=== PATIENT | male | born 1980 | race Caucasian/White ===

== ENCOUNTER 2018-08-31 13:23 | Day surgery (SDC) | payer OTHER, MEDICAID, SELFPAY ==
[2018-08-25 16:46] VITALS: BMI 34.1
[2018-08-31] VITALS (7 sets, daily range): BP systolic 117–140; BP diastolic 79–94; PULSE 79–113; RESP 11–18; TEMP 36.3–37.1; O2SAT 93–98; BMI 34.1
[2018-08-31] MEDS: LACTATED RINGERS 1,000 ML 42 ML IV (14:12)
--- NOTE | 2018-08-31 14:26 | PM.PREOP ---
Pre-operative Note Interval Note Pre-op Check: Yes History & Physical Reviewed by Physician Changes: No
[2018-08-31] MEDS: CEFAZOLIN 2 GM/100 ML FROZ.PIGGY IV (14:40)
--- NOTE | 2018-08-31 14:53 | SUR.OPER ---
Lithotomy on padded OR bed, head on pillow, arms secured on padded arm boards at <90 degrees abduction. Legs secured in padded yellow fins stirrups.
[2018-08-31] MEDS: BUPIVACAINE 0.5% (PF) VIAL 10 ML INJ ×2 (15:01→15:02)
[2018-08-31] MEDS: DIBUCAINE 1% OINT 28 GM 1 APPLIC TOP (15:13)
--- NOTE | 2018-08-31 15:14 | PM.OP.1 ---
Operative Date/Time/Diagnoses Date of procedure: 08/31/18 Time of procedure: 15:14 Pre-op diagnosis: Recurrent anal fissure Post-op diagnosis: same Procedure & Clinicians Procedure: Examination under anesthesia with lateral sphincterotomy in closure anal fissure Same procedure as scheduled: Yes Indications: Recurrent anal fissure refractory to medical treatment Surgeon: Halina Ramírez Anesthesia Type: General (Dr Cantu) and Local Operative Notes Findings: 1. 1/2 cm anal fissure at the 6:00 a.m. Radian in lithotomy position 2. Hypertrophic internal anal sphincter. Closure Type: primary Estimated Blood Loss (mL): 5 Procedure in detail: After obtaining informed consent the patient brought to the operating room and placed in supine position on the operating table. Following successful induction of general endotracheal anesthesia, the patient was placed in lithotomy position and all bony prominences padded. A time-out was held per [facility] protocol Following infiltration with local anesthetic to create a field block, and anal retractor was placed in the internal and external anal sphincters identified. An incision was created in the mucosa over the internal anal sphincter and it was identified. Using a 15 blade scalpel approximately 1/3 of the fibers of the internal anal sphincter were divided. This left 2/3 of the fibers intact. Wound was checked for hemostasis. The mucosa over this incision was then closed with running locking chromic suture. With and turned our attention to the anal fissure itself. It was smaller than it had been in the office on the day of examination there. On this day, it was only about a 0.5 cm in length as compared to 1 cm length in the office. The base of this fissure was debrided and the mucosa was approximated over it. The wound was again checked for hemostasis. A pack of Gelfoam and dibucaine ointment was placed in the anal canal. All sponge, needle, and instrument counts were correct at the conclusion of the case. The patient was allowed to awake from anesthesia without difficulty and taken to the postanesthesia care unit in good condition. Complications: none Condition: stable Disposition: PACU Plan for aftercare: 1. Discharge to home 2. Follow up my office in 2 weeks
== END 2018-08-31 16:10 | disposition home or self-care (01) ==
PROVIDERS: PCP Family Medicine; Visit Provider Surgery
PROC: (CPT 45990; principal; 2018-08-31 15:00)
DX: K60.2 Anal fissure, unspecified (principal); F17.210 Nicotine dependence, cigarettes, uncomplicated
CPT/HCPCS: 46080; J0690; J1100; J2250; J2405; J2704; J3010

== ENCOUNTER → 2019-06-13 15:52 | Outpatient (CLI) | payer OTHER, MEDICAID, SELFPAY ==
[2019-06-13 17:49] LABS: Alanine Aminotransferase 26 IU/L (21-72); Albumin Globulin Ratio 1.4 (1.0-2.8); Alkaline Phosphatase 77 U/L (38-126); Aspartate Aminotransferase 23 IU/L (17-59); BUN Creatinine Ratio 28.6 (6-22); Bilirubin Total 0.1 mg/dL (0.2-1.3); Blood Urea Nitrogen 20 mg/dL (9-20); Calcium 9.1 mg/dL (8.4-10.2); Carbon Dioxide 26 mmol/L (22-32); Chloride 105 mmol/L (98-107); Cholesterol 169 mg/dL (140-199); Estimated Glomerular Filt Rate > 60.0 mL/min (>60); Globulin 2.8 g/dL (1.7-4.1); Glucose 100 mg/dL (70-100); HDL Cholesterol 26 mg/dL (40-60); HEMOLYSIS < 15 (0-50); LDL Cholesterol Calculated 126 mg/dL (<100); Potassium 4.4 mmol/L (3.4-5.1); Sodium 139 mmol/L (137-145); Total Protein 6.8 g/dL (6.3-8.2); Triglycerides 86 mg/dL (35-150)
== END ==
PROVIDERS: PCP Family Medicine; Visit Provider Internal Medicine
DX: E66.9 Obesity, unspecified (principal); R03.0 Elevated blood-pressure reading, without diagnosis of hypertension
CPT/HCPCS: 36415; 80053; 80061

== ENCOUNTER 2021-04-16 14:22 | Emergency (ER) | payer OTHER, MEDICAID, SELFPAY ==
[2021-04-16 14:37] VITALS: BP 152/94; PULSE 97; RESP 16; TEMP 37.1; O2SAT 98; BMI 35.3
--- NOTE | 2021-04-16 14:39 | DI.RAD.S_ITS ---
PROCEDURE: XR RIBS RT MIN 3V W CXR 1V INDICATIONS: rib pain after sneeze TECHNIQUE: 3 views of the right ribs were acquired, along with a single view chest. COMPARISON: CR, RIBS UNILATERAL WITH PA CXR, 06/09/2017, 13:06. FINDINGS: Surgical changes and devices: None. Bones and chest wall: No fractures or dislocations. No suspicious bony lesions. Overlying soft tissues appear unremarkable. Lungs and pleura: No pleural effusions or pneumothorax. Lungs appear clear. Mediastinum: Mediastinal contours appear normal. Heart size is normal. IMPRESSION: No visualized acute fracture or dislocation. However, if clinical concern and/or pain persist, short interval imaging followup in 7-10 days is recommended, as occult injury cannot be definitively excluded. Dictated by: Linda Khan M.D. on 04/16/2021 at 15:10 Approved by: Linda Khan M.D. on 04/16/2021 at 15:11
--- NOTE | 2021-04-16 14:44 | ED_ITS ---
HPI - Chest Pain General Chief Complaint: Chest Pain Stated Complaint: sneezed and pulled something in side Time Seen by Provider: 04/16/21 14:39 Source: patient Mode of arrival: Ambulatory History of Present Illness HPI narrative: Patient is a 41-year-old male who presents with right rib pain after sneezing. He says it was quite forceful sneeze and hurts in his lower ribs and abdomen. He is unable to sit. It hurts every time he breathes or moves. He had a rib contusion once. It feels similar however his contusion was after a fall not a sneeze Related Data Home Medications Medication Instructions Recorded Confirmed trazodone 50 mg tablet 50 mg PO DAILY #0 11/03/17 03/28/19 meloxicam 15 mg tablet 15 mg PO DAILY PRN tab 05/16/18 03/28/19 Previous Rx's Medication Instructions Recorded cephalexin 500 mg tablet 1,000 mg PO BID #10 tab 08/31/18 ondansetron 4 mg disintegrating 4 mg PO QID PRN #14 tab 08/31/18 tablet hydrocortisone 2.5 % topical cream 1 applictn NM BID-QID PRN #30 gram 09/08/18 with perineal applicator (Anusol-HC) dibucaine 1 % rectal ointment 1 applictn NM QID PRN #56.7 gram 10/18/18 ciprofloxacin HCl 500 mg tablet 500 mg PO BID #14 tab 10/31/18 gabapentin 300 mg capsule 300 mg PO BID #60 cap 10/31/18 methylprednisolone 4 mg tablets in See Rx Instructions PO PER PKG DIR 10/31/18 a dose pack #21 each hydroxyzine pamoate 50 mg capsule 50 mg PO QID PRN #30 cap 11/07/18 prednisone 5 mg tablets in a dose See Rx Instructions PO PER PKG DIR 11/21/18 pack #48 each Allergies Allergy/AdvReac Type Severity Reaction Status Date / Time No Known Drug Allergies Allergy Unverified 03/28/19 13:50 Review of Systems Review of Systems Narrative: GENERAL: Denies chills,fever HEENT: Denies throat pain RESPIRATORY: See HPI CARDIOVASCULAR: Denies chest pain, palpitations GASTROINTESTINAL: Denies nausea, vomiting MUSCULOSKELETAL: Denies extremity pain, injury SKIN: No rash, no laceration, no pruritus NEUROLOGIC: Denies weakness, dizziness, headache, numbness 8 point review of systems is negative except for those stated above and HPI Patient History Medical History (Updated 04/16/21 @ 14:50 by Susan Finn DO) Anxiety Depression Hypertension Meralgia paresthetica Social History household members: significant other Smoking Status: Current every day smoker alcohol intake: current Smoking Status: Current every day smoker alcohol intake frequency: 0-2 drinks per day Substance Use Type: does not use Exam Initial Vital Signs Initial Vital Signs: Vital Signs Temperature 98.7 F 04/16/21 14:37 Pulse Rate 97 H 04/16/21 14:37 Respiratory Rate 16 04/16/21 14:37 Blood Pressure 152/94 H 04/16/21 14:37 Pulse Oximetry 98 04/16/21 14:37 GENERAL: Alert 41-year-old male standing HEENT: Head atraumatic,EOMI, pupils reactive, face symmetric, moist mucous membranes CARDIOVASCULAR: Regular rate and rhythm without murmurs, rubs or gallops. RESPIRATORY: Breath sounds equal bilaterally, no wheezes rales or rhonchi. Pain in right lower anterior ribs no paradoxical movement no contusion ABDOMEN: Soft, nontender. Normoactive bowel sounds all 4 quadrants. No guard ing or rebound. EXTREMITIES: Normal range of motion, no clubbing or edema. Neurovascularly intact NEUROLOGICAL: Alert and oriented x4.Normal gait and speech. SKIN: Warm, dry, no laceration, no petechiae, no rashes or lesions. Course Orders Ordered: ED Orders 04/16/21 14:39 XR ribs RT min 3V w CXR1V Stat Discontinued Medications Ketorolac Tromethamine (Ketorolac 30 Mg/Ml Vial) 30 mg IM NOW ONE Stop: 04/16/21 14:40 Last Admin: 04/16/21 15:18 Dose: 30 mg Documented by: MIKE Vital Signs Vital signs: Vital Signs - 8 hr 04/16/21 14:37 04/16/21 15:20 Temperature 98.7 F 98.7 F Pulse Rate 97 H 102 H Respiratory Rate 16 14 Blood Pressure 152/94 H 152/94 H Pulse Oximetry 98 99 MDM - Chest Pain Imaging Data Chest x-ray: Radiologist's Impression: PROCEDURE: XR RIBS RT MIN 3V W CXR 1V INDICATIONS: rib pain after sneeze TECHNIQUE: 3 views of the right ribs were acquired, along with a single view chest. COMPARISON: CR, RIBS UNILATERAL WITH PA CXR, 06/09/2017, 13:06. FINDINGS: Surgical changes and devices: None. Bones and chest wall: No fractures or dislocations. No suspicious bony lesions. Overlying soft tissues appear unremarkable. Lungs and pleura: No pleural effusions or pneumothorax. Lungs appear clear. Mediastinum: Mediastinal contours appear normal. Heart size is normal. IMPRESSION: No visualized acute fracture or dislocation. However, if clinical concern and/or pain persist, short interval imaging followup in 7-10 days is recommended, as occult injury cannot be definitively excluded. Dictated by: Linda Khan M.D. on 04/16/2021 at 15:10 MDM Narrative Medical decision making narrative: Patient has very minimal improvement after Toradol. He is unhappy with his choice of pain medication. At this time x-rays were negative. He certainly did not have a high risk mechanism. Discharge Plan Departure Patient Disposition: Home Clinical Impression: Rib pain on right side Instructions: DI for Rib Contusion Activity Restrictions/Additional Instructions: *You have been diagnosed with rib sprain *What to do: At this time he likely sprained or rib while sneezing *Continue to take medications as directed Ibuprofen 800 mg every 8 hours as needed for [id number] pain *Follow up with your primary care provider in 2-3 days *Return to ER if you should have increasing pain, difficulty breathing or any new, worsening or concerning symptoms Prescriptions: No Action trazodone 50 MG tablet 50 mg PO DAILY Qty: 0 RF: 0 dibucaine 1 % ointment 1 applictn NM QID PRN (Reason: rectal discomfort) Qty: 56.7 RF: 0 hydroxyzine pamoate 50 mg capsule 50 mg PO QID PRN (Reason: itching) Qty: 30 RF: 0 meloxicam 15 mg tablet 15 mg PO DAILY PRN (Reason: Unlisted) RF: 0 hydrocortisone [Anusol-HC] 2.5 % cream with perineal applicator 1 applictn NM BID-QID PRN (Reason: itching) Qty: 30 RF: 0 methylprednisolone 4 mg tablets,dose pack See Rx Instructions PO PER PKG DIR Qty: 21 RF: 0 ciprofloxacin HCl 500 mg tablet 500 mg PO BID Qty: 14 RF: 0 gabapentin 300 mg capsule 300 mg PO BID Qty: 60 RF: 0 prednisone 5 mg tablets,dose pack See Rx Instructions PO PER PKG DIR Qty: 48 RF: 0 ondansetron 4 mg tablet,disintegrating 4 mg PO QID PRN (Reason: nausea and vomiting) Qty: 14 RF: 0 cephalexin 500 mg tablet 1,000 mg PO BID Qty: 10 RF: 0
--- NOTE | 2021-04-16 15:14 | PC.NURSE ---
Patient sneezed - immediately had right flank pain; #8
[2021-04-16] MEDS: KETOROLAC 30 MG/ML VIAL IM (15:18)
[2021-04-16 15:20] VITALS: BP 152/94; PULSE 102; RESP 14; TEMP 37.1; O2SAT 99
== END 2021-04-16 15:23 | disposition home or self-care (01) ==
PROVIDERS: Emergency Provider Emergency Medicine
DX: R07.81 Pleurodynia (principal)
CPT/HCPCS: 71101; 99283; J1885

== ENCOUNTER → 2021-08-14 13:29 | Outpatient (CLI) | payer OTHER, MEDICAID, SELFPAY ==
[2021-08-14 14:45] LABS: Add Manual Diff / Slide Review NO; Basophils Absolute Auto 100 /uL (0-100); Eosinophils Absolute Auto 500 /uL (0-450); Eosinophils Percent Auto 4.4 % (2-4); Hematocrit 44.9 % (41-53); Hemoglobin 15.1 g/dL (13.5-17.5); Lymphocytes Absolute Auto 2400 /uL (1100-4500); Lymphocytes Percent Auto 20.8 % (25-40); Mean Corpuscular HGB Conc 33.7 % (30-36); Mean Corpuscular Hemoglobin 30.8 PG (26-34); Mean Corpuscular Volume 91.2 fL (80-100); Monocytes Absolute Auto 900 /uL (0-900); Monocytes Percent Auto 8.1 % (3-14); Neutrophils Absolute Auto 7700 /uL (1500-7000); Neutrophils Percent Auto 65.7 % (50-75); Platelet Count 358 X10^3/uL (150-400); Red Blood Cell Count 4.92 X10^6/uL (4.5-5.9); Red Cell Distribution Width 13.2 % (11.6-14.8); White Blood Cell Count 11.7 X10^3/uL (4.5-11.0)
[2021-08-14 15:02] LABS: Alanine Aminotransferase 102 IU/L (<50); Albumin Globulin Ratio 1.7 (1.0-2.8); Alkaline Phosphatase 107 U/L (38-126); Aspartate Aminotransferase 58 IU/L (17-59); BUN Creatinine Ratio 24.6 (6-22); Bilirubin Total 0.8 mg/dL (0.2-1.3); Blood Urea Nitrogen 17 mg/dL (9-20); Calcium 9.9 mg/dL (8.4-10.2); Carbon Dioxide 24 mmol/L (22-32); Chloride 100 mmol/L (98-107); Cholesterol 224 mg/dL (140-199); Estimated Glomerular Filt Rate > 60.0 mL/min (>60); Glucose 102 mg/dL (70-100); HDL Cholesterol 30 mg/dL (40-60); HEMOLYSIS < 15 (0-50); Potassium 4.7 mmol/L (3.4-5.1); Sodium 137 mmol/L (137-145)
[2021-08-14 15:08] LABS: Triglycerides 584 mg/dL (35-150)
[2021-08-14 15:32] LABS: TSH w/ Reflex to FT4 2.09 uIU/mL (0.47-4.68)
== END ==
PROVIDERS: PCP Registered Nurse; Referring Provider Registered Nurse; Visit Provider Registered Nurse
DX: F41.8 Other specified anxiety disorders (principal); E78.5 Hyperlipidemia, unspecified
CPT/HCPCS: 36415; 80053; 80061; 84443; 85025

== ENCOUNTER → 2024-11-10 12:59 | Outpatient (CLI) | payer OTHER, SELFPAY ==
--- NOTE | 2024-11-10 13:01 | DI.RAD.S_ITS ---
PROCEDURE: XR KNEE RT 3V INDICATIONS: Bilateral knee pain, popping of both knees TECHNIQUE: 3 views of the knee were acquired. COMPARISON: None. FINDINGS: Bones: No fractures or dislocations. No suspicious bony lesions. Soft tissues: No joint effusion. No suspicious soft tissue calcifications. IMPRESSION: No acute bony abnormality or significant effusion. Dictated by: Tyrone Cardenas M.D. on 11/10/2024 at 21:56 Approved by: Tyrone Cardenas M.D. on 11/10/2024 at 21:56
--- NOTE | 2024-11-10 13:01 | DI.RAD.S_ITS ---
PROCEDURE: XR KNEE LT 3V INDICATIONS: Bilateral knee pain, popping of both knees TECHNIQUE: 3 views of the knee were acquired. COMPARISON: None. FINDINGS: Bones: No fractures or dislocations. No suspicious bony lesions. Soft tissues: No joint effusion. No suspicious soft tissue calcifications. IMPRESSION: No acute bony abnormality or significant effusion. No significant degenerative changes. Dictated by: Tyrone Cardenas M.D. on 11/10/2024 at 21:56 Approved by: Tyrone Cardenas M.D. on 11/10/2024 at 21:57
--- NOTE | 2024-11-10 13:01 | DI.RAD.S_ITS ---
PROCEDURE: XR HIP W PEL IF DONE MIKE MIN 4V INDICATIONS: Bilateral hip pain TECHNIQUE: AP pelvis with lateral view(s) of the bilateral hip(s). COMPARISON: None. FINDINGS: Bones: No fractures or dislocations. Moderate bilateral hip joint degeneration with joint space narrowing and marginal spur Pelvic ring appears intact. No suspicious bony lesions. Soft tissues: The visualized bowel gas pattern is normal. No suspicious soft tissue calcifications. IMPRESSION: No acute bony abnormality. Moderate bilateral hip joint degeneration. Dictated by: Tyrone Cardenas M.D. on 11/10/2024 at 21:55 Approved by: Tyrone Cardenas M.D. on 11/10/2024 at 21:56
== END ==
PROVIDERS: PCP Family Medicine; Referring Provider Family Medicine; Visit Provider Family Medicine
DX: M25.559 Pain in unspecified hip (principal); M25.561 Pain in right knee; M25.562 Pain in left knee; R29.898 Other symptoms and signs involving the musculoskeletal system; M16.0 Bilateral primary osteoarthritis of hip
CPT/HCPCS: 73522; 73562

== ENCOUNTER → 2025-02-09 11:52 | Outpatient (CLI) | payer OTHER, SELFPAY ==
--- NOTE | 2025-02-09 12:06 | EKG_ITS ---
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
[2025-02-09 13:59] LABS: Add Manual Diff / Slide Review NO; Basophils Absolute Auto 100 /uL (0-100); Basophils Percent Auto 1.1 % (0-2); Eosinophils Absolute Auto 300 /uL (0-450); Eosinophils Percent Auto 3.1 % (2-4); Hematocrit 44.3 % (41-53); Hemoglobin 15.4 g/dL (13.5-17.5); Lymphocytes Absolute Auto 2600 /uL (1100-4500); Lymphocytes Percent Auto 32.3 % (25-40); Mean Corpuscular HGB Conc 34.9 % (30-36); Mean Corpuscular Hemoglobin 31.6 PG (26-34); Mean Corpuscular Volume 90.6 fL (80-100); Monocytes Absolute Auto 600 /uL (0-900); Monocytes Percent Auto 6.9 % (3-14); Neutrophils Absolute Auto 4700 /uL (1500-7000); Neutrophils Percent Auto 56.6 % (50-75); Platelet Count 306 X10^3/uL (150-400); Red Blood Cell Count 4.89 X10^6/uL (4.5-5.9); White Blood Cell Count 8.2 X10^3/uL (4.5-11.0)
[2025-02-09 14:06] LABS: Hemoglobin A1C% w Est Avg Glu 5.1 % (4.0-6.0)
[2025-02-09 14:19] LABS: Albumin 4.9 g/dL (3.5-5.0); BUN Creatinine Ratio 18.6 (6-22); Blood Urea Nitrogen 13 mg/dL (9-20); Calcium 9.7 mg/dL (8.4-10.2); Carbon Dioxide 24 mmol/L (22-32); Chloride 104 mmol/L (98-107); Estimated Glomerular Filt Rate > 60 mL/min (>60); Glucose 91 mg/dL (70-99); HEMOLYSIS < 15 (0-50); Potassium 4.7 mmol/L (3.4-5.1); Sodium 139 mmol/L (137-145)
[2025-02-09 14:26] LABS: Prealbumin 38.3 mg/dL (17.6-36.0)
== END ==
PROVIDERS: PCP Family Medicine; Referring Provider Orthopaedic Surgery Adult Reconstructive Orthopaedic Surgery; Visit Provider Orthopaedic Surgery Adult Reconstructive Orthopaedic Surgery
DX: M25.552 Pain in left hip (principal); Z78.9 Other specified health status
CPT/HCPCS: 36415; 80048; 82040; 82306; 83036; 84134; 85025; 93005; 99214

== ENCOUNTER → 2025-07-24 12:12 | Outpatient (CLI) | payer OTHER, SELFPAY ==
[2025-07-24 13:38] LABS: Alanine Aminotransferase 26 IU/L (<50); Albumin 5.0 g/dL (3.5-5.0); Albumin Globulin Ratio 1.8 (1.0-2.8); Alkaline Phosphatase 68 U/L (38-126); Blood Urea Nitrogen 13 mg/dL (9-20); Calcium 9.5 mg/dL (8.4-10.2); Carbon Dioxide 25 mmol/L (22-32); Chloride 103 mmol/L (98-107); Cholesterol 177 mg/dL (140-199); Estimated Glomerular Filt Rate > 60 mL/min (>60); Globulin 2.8 g/dL (1.7-4.1); Glucose 97 mg/dL (70-99); HDL Cholesterol 31 mg/dL (40-60); HEMOLYSIS < 15 (0-50); Potassium 4.2 mmol/L (3.4-5.1); Sodium 139 mmol/L (137-145); Total Protein 7.8 g/dL (6.3-8.2); Triglycerides 141 mg/dL (35-150)
[2025-07-24 14:06] LABS: TSH w/ Reflex to FT4 1.64 uIU/mL (0.47-4.68)
[2025-07-24 14:12] LABS: Ferritin 139 ng/mL (18-464)
== END ==
PROVIDERS: PCP Family Medicine; Referring Provider Family Medicine; Visit Provider Family Medicine
DX: E78.5 Hyperlipidemia, unspecified (principal); F32.9 Major depressive disorder, single episode, unspecified; Z86.39 Personal history of other endocrine, nutritional and metabolic disease
CPT/HCPCS: 36415; 80053; 80061; 82728; 84443

== ENCOUNTER → 2025-08-15 09:49 | Outpatient (CLI) | payer OTHER, SELFPAY | PROVIDERS: PCP Family Medicine; Referring Provider Family Medicine; Visit Provider Family Medicine | DX: Z12.11 Encounter for screening for malignant neoplasm of colon (principal) | CPT/HCPCS: 82274 ==

== ENCOUNTER → 2025-08-27 11:16 | Outpatient (CLI) | payer OTHER, SELFPAY ==
[2025-08-27 12:30] LABS: Add Manual Diff / Slide Review NO; Hematocrit 44.4 % (41-53); Hemoglobin 15.2 g/dL (13.5-17.5); Lymphocytes Absolute Auto 1900 /uL (1100-4500); Mean Corpuscular HGB Conc 34.3 % (30-36); Mean Corpuscular Hemoglobin 31.2 PG (26-34); Mean Corpuscular Volume 91.0 fL (80-100); Platelet Count 425 X10^3/uL (150-400)
[2025-08-27 13:11] LABS: Hemoglobin A1C% w Est Avg Glu 5.2 % (4.0-6.0)
[2025-08-27 14:34] LABS: Prealbumin 39.4 mg/dL (17.6-36.0)
[2025-08-27 16:09] LABS: Vitamin D 25 Hydroxy (D3) 29.9 ng/mL (30.0-100.0)
== END ==
PROVIDERS: PCP Family Medicine; Referring Provider Family Medicine; Visit Provider Orthopaedic Surgery Adult Reconstructive Orthopaedic Surgery
DX: Z01.818 Encounter for other preprocedural examination (principal); M16.0 Bilateral primary osteoarthritis of hip
CPT/HCPCS: 36415; 82306; 83036; 84134; 85025